=== PATIENT | female | born 1965 | race Caucasian/White ===

== ENCOUNTER 2017-04-03 17:47 | Emergency (ER) | payer SELFPAY ==
[2017-04-03] MEDS ORDERED: TORAdol 30 mg Injection IM ONE (18:05)
[2017-04-03] MEDS ORDERED: TORAdol 30 mg Injection ONE (18:08)
[2017-04-03] MEDS ORDERED: XYLOCAINE 2% Uro-Jet ONE (18:16)
[2017-04-03] MEDS ORDERED: BACIGUENT PACKET TP ONE (18:20)
[2017-04-03] MEDS ORDERED: BACIGUENT PACKET ONE (18:21)
--- NOTE | 2017-04-03 18:33 | ERPHSYRPT ---
- History of Present Illness Time Seen by Provider: 04/03/17 18:27 Source: patient Exam Limitations: no limitations Patient Subjective Stated Complaint: PT states "I broke a window and crawled through cutting myself on the glass." Triage Nursing Assessment: PT alert and oriented X 3, skin pwd pt ambulates without difficulty, able to speak in full sentences. pt has laceration to posterior left leg, left knee, rt knee, rt thumb. Physician History: PT states "I broke a window and crawled through cutting myself on the glass." " while doing it i had cut on back of my thigh and thumb and on knee" denies any other injury. Patient appears intoxicated. Timing/Duration: today Severity: mild Associated Symptoms: denies symptoms Allergies/Adverse Reactions: No Known Drug Allergies Allergy (Unverified 04/03/17 18:04) Hx Tetanus, Diphtheria Vaccination/Date Given: Yes Hx Influenza Vaccination/Date Given: No Hx Pneumococcal Vaccination/Date Given: No Immunizations Up to Date: Yes - Review of Systems Constitutional: No Symptoms Skin: Other (5 cms laceration on back of left thigh, superficial to subcuteneous area) - Past Medical History Pertinent Past Medical History: Yes Neurological History: No Pertinent History ENT History: No Pertinent History Cardiac History: No Pertinent History Respiratory History: No Pertinent History Endocrine Medical History: No Pertinent History Musculoskeletal History: No Pertinent History GI Medical History: No Pertinent History History: No Pertinent History Psycho-Social History: No Pertinent History Female Reproductive Disorders: No Pertinent History Other Medical History: pancreatitis - Past Surgical History Past Surgical History: Yes Other Surgical History: abdominal. head - Social History Smoking Status: Current every day smoker How long have you smoked: 30 year Exposure to second hand smoke: Yes Drug Use: none Patient Lives Alone: No - Female History Hx Last Menstrual Period: menopause - Nursing Vital Signs Nursing Vital Signs: Initial Vital Signs Temperature 97.3 F 04/03/17 17:56 Pulse Rate 102 H 04/03/17 17:56 Respiratory Rate 18 04/03/17 17:56 Blood Pressure 112/77 04/03/17 17:56 O2 Sat by Pulse Oximetry 98 04/03/17 17:56 Pain Scale Pain Intensity 7 - Physical Exam General Appearance: no apparent distress Skin Exam: abrasion (on both knees and thumb, ), laceration (5 cms long laceration on posterior thigh ) SpO2: 98 Oxygen Delivery: Room Air Procedures - Laceration/Wound Repair Left Other Wound Location: Left (thigh) Wound Length (cm): 5 Wound's Depth, Shape: superficial Wound Explored: contaminated Irrigated: Yes Hibiclens Prep: Yes Anesthesia: topical Wound Debrided: minimal Wound Repaired With: [place] Number of Sutures: 6 Layer Closure?: No Sterile Dressing Applied?: Yes Splint Applied?: No - Course Nursing assessment & vital signs reviewed: Yes Ordered Tests: Active Orders 24 hr Category Date Time Status Wound Care STAT Care 04/03/17 18:08 Active Medication Summary Discontinued Medications Generic Name Dose Route Start Last Admin Trade Name Drewq PRN Reason Stop Dose Admin Bacitracin 0.9 gm 04/03/17 18:20 04/03/17 18:22 Baciguent Packet TP 04/03/17 18:21 0.9 gm STAT ONE Administration Bacitracin Confirm 04/03/17 18:21 Baciguent Packet Administered 04/03/17 18:22 Dose 1 gm .ROUTE .STK-MED ONE Ketorolac Tromethamine 60 mg 04/03/17 18:05 04/03/17 18:11 Toradol 30 Mg Injection IM 04/03/17 18:06 60 mg STAT ONE Administration Ketorolac Tromethamine Confirm 04/03/17 18:08 Toradol 30 Mg Injection Administered 04/03/17 18:09 Dose 60 mg .ROUTE .STK-MED ONE Lidocaine HCl Confirm 04/03/17 18:16 Xylocaine 2% Uro-Jet Administered 04/03/17 18:17 Dose 200 mg .ROUTE .STK-MED ONE - Progress Progress: improved Counseled pt/family regarding: diagnosis, need for follow-up (for darleen removal) - Departure Time of Disposition: 18:33 Departure Disposition: Home Clinical Impression: Laceration of thigh without complication Qualifiers: Encounter type: initial encounter Laterality: left Qualified Code(s): S71.112A - Laceration without foreign body, left thigh, initial encounter Condition: Stable Critical Care Time: No Referrals: AMANDA GAY [ACTIVE STAFF] - Instructions: Laceration Repair -- Darleen, Care for a Laceration After Repair Additional Instructions: LACERATION CARE 1. Do not use peroxide, merthiolate, alcohol, or betadine. 2. Keep wound clean and dry. 3. Change dressing if it becomes wet or soiled. 4. If you must work, wear protective covering. 5. You may return to the emergency department or see your family physician for suture removal. 6. See your family physician or return to the emergency department for any of the following signs or symptoms: A. Redness B. Swelling C. Discolored drainage D. Red streaks E. Elevated temperature F. Other signs of infection Prescriptions: Cephalexin Mh 500 mg [Keflex 500 mg] 500 mg PO Q6H #40 capsule
[2017-04-03 18:51] VITALS: BP 105/72; PULSE 96; O2SAT 99
[2017-04-03] MEDS ORDERED: XYLOCAINE 2% Uro-Jet TOP ONE (18:52)
== END 2017-04-03 18:52 | disposition home or self-care (01) ==
LOC: ED 17:47
PROC: 0HQJXZZ Repair Left Upper Leg Skin, External Approach (ICD-10-PCS; principal; 2017-04-03)
DX: S71.112A Laceration without foreign body, left thigh, initial encounter (principal); W25.XXXA Contact with sharp glass, initial encounter
CPT/HCPCS: 12002; 99284; J1885; A9270-GY